=== PATIENT | male | born 2005 | race Hispanic/Latino ===

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

== ENCOUNTER 2025-02-21 01:05 | Emergency (ER) | payer SELFPAY ==
[~2025-02-21] VITALS: Ht 172.7 cm; Wt 113.4 kg
[2025-02-21 01:26] LABS: IMMATURE GRANULOCYTE ABSOLUTE 0.02 K/uL (0-1); NUCLEATED RED BLOOD CELLS 0.0 % (0.0-0.19); PLATELET COUNT (AUTO) 275 K/uL (130-400); RED BLOOD CELL COUNT(AUTO) 4.56 MIL/uL (4.50-6.20); RED CELL DISTRIBUTION WIDTH 12.8 % (11.0-15.5); WHITE BLOOD COUNT (AUTO) 9.0 K/uL (4.8-10.8)
[2025-02-21 01:34] LABS: CREATININE 0.9 mg/dL (0.5-1.3); GLOMERULAR FILTR. RATE CALC 125.0 mL/min (>90); GLUCOSE,RANDOM 112.0 mg/dL (70-105); SODIUM SERUM 139.0 mmol/L (136-145); UREA NITROGEN, BLOOD 12.0 mg/dL (7-18)
[2025-02-21 01:40] LABS: CREATINE KINASE, TOTAL 181.0 U/L (21-232)
--- NOTE | 2025-02-21 01:58 | ERN ---
General Chief Complaint: Chest Pain Stated Complaint: CHEST PAIN, SOB Time Seen by MD: 01:07 Time Seen by Midlevel: 01:07 Source: patient History of Present Illness Initial Comments Patient is a 19-year-old male with no significant past medical history presenting to the emergency department for evaluation of centralized chest pain that started a proximally1 hour prior to arrival. Denies similar episodes in the past. Denies any history of type 2 diabetes, hypertension, or any other chronic medical condition. On arrival with the patient does report feeling slightly improved but wanted further evaluation Allergies: Coded Allergies: No Known Allergies (Unverified Allergy, Unknown, 02/21/25) Past Medical History Past Medical History: No Pertinent History Past Surgical History: None ROS Dictation CONSTITUTIONAL: Negative except for HPI HEAD/FACE: Negative except for HPI EENT: Negative except for HPI RESPIRATORY: Negative except for HPI GASTROINTESTINAL/ABDOMINAL: Negative except for HPI GENITOURINARY: Negative except for HPI MUSCULOSKELETAL: Negative except for HPI INTEGUMENTARY: Negative except for HPI NEUROLOGICAL/PSYCH: Negative except for HPI HEMATOLOGIC/LYMPHATIC: Negative except for HPI All Systems Negative, Except as noted above. 13 point review of systems assessed and all negative except for above. Physical Exam Physical Exam Dictation Vital Signs reviewed General Appearance: Alert, oriented x 3, no acute distress, well developed, nourished. Head and Face: non-traumatic. Eyes: PERRL, pink conjunctivas, eyelid no trauma, anterior chamber with arcus senilis. Ears: Pinnas intact and no signs of trauma or erythema ear canals clear and no discharge TM no erythema Nose: No discharge, no bleeding. Oropharynx: Mouth normal, tongue pink, pharynx clear,no erythema, tonsils no exudates, no abscesses noted, mucous membrane moist Neck: Supple, non-tender, no thyromegaly, no masses, no JVD, no bruits Breast:Deferred Chest:No tenderness, no crepitus, no paradoxical movement, no retractions Lungs:Clear, well-ventilated, symmetric, no rales, no wheezing, no rhonchi, no stridor, good breath sounds bilaterally Heart: Regular rate, regular rhythm, no murmur, no gallops Vascular: no peripheral edema, Abdomen: Soft, positive bowel sounds, nondistended, no guarding, nontender, no rebound, no masses no hepatomegaly, no splenomegaly, no Kate's s ign, no hernias. Rectal: Deferred Genital: Deferred Neurological: Normal speech, motor function intact, sensory function intact Musculoskeletal: Neck nontender, full range of motion, back nontender, full range of motion, Extremities: nontender, full range of motion Skin: Color pink, dry, no turgor, no rash, no lacerations, no abrasions, no contusions. Lymphatic: Deferred Results Laboratory and Microbiology Lab and Micro Result Laboratory Tests Test 02/21/25 01:18 White Blood Count 9.0 K/uL (4.8-10.8) Red Blood Count 4.56 MIL/uL (4.50-6.20) Hemoglobin 14.4 g/dL (14.0-18.0) Hematocrit 40.6 % (42-54) L Mean Corpuscular Volume 89.0 fL (80-100) Mean Corpuscular Hemoglobin 31.6 pg (27.0-33.0) Mean Corpuscular Hemoglobin Concent 35.5 g/dL (32.0-36.0) Red Cell Distribution Width 12.8 % (11.0-15.5) Platelet Count 275 K/uL (130-400) Mean Platelet Volume 9.6 fL (7.5-10.5) Immature Granulocyte % (Auto) 0.2 % (0-1) Neutrophils (%) (Auto) 47.3 % (40.0-77.0) Lymphocytes (%) (Auto) 39.4 % (21.0-51.0) Monocytes (%) (Auto) 11.2 % (3.0-13.0) Eosinophils (%) (Auto) 1.3 % (0.0-8.0) Basophils (%) (Auto) 0.6 % (0.0-5.0) Neutrophils # (Auto) 4.3 K/uL (1.8-7.7) Lymphocytes # (Auto) 3.6 K/uL (1.0-4.8) Monocytes # (Auto) 1.0 K/uL (0.1-1.0) Eosinophils # (Auto) 0.12 K/uL (0.00-0.70) Basophils # (Auto) 0.05 K/uL (0.00-0.20) Absolute Immature Granulocyte (auto 0.02 K/uL (0-1) Nucleated Red Blood Cells 0.0 % (0.0-0.19) Sodium Level 139 mmol/L (136-145) Potassium Level 3.7 mmol/L (3.5-5.1) Chloride Level 102 mmol/L (101-111) Carbon Dioxide Level 32 mmol/L (21-32) Blood Urea Nitrogen 12 mg/dL (7-18) Creatinine 0.9 mg/dL (0.5-1.3) Glomerular Filtration Rate Calc 125 mL/min (>90) Random Glucose 112 mg/dL (70-105) H Total Calcium 9.2 mg/dL (8.5-10.1) Total Creatine Kinase 181 U/L (21-232) Troponin I High Sensitivity 5 ng/L (4-75) Labs Reviewed?: Yes MDM MDM: Differential diagnosis: Acute coronary syndrome, anxiety, pneumonia, acute bronchitis, pneumothorax There are no social concerns with this patient. Prescription drug management Prescriptions will include: None Medical management and examination interpretation discussions were had by me with other qualified healthcare professionals as indicated for the patient's care. ED Course Orders Procedure Category Date Status Time Vital Signs Per CPOE 02/21/25 Transmitted Routine 01:06 Chest 1vw RAD 02/21/25 Taken 01:06 12 Lead Ekg Tracing- EKG 02/21/25 Logged Technical 01:06 Oxygen By Nc/Pulse Ox CPOE 02/21/25 Transmitted 01:06 Maintain Iv CPOE 02/21/25 Transmitted 01:06 Iv Insertion CPOE 02/21/25 Transmitted 01:06 Cardiac Monitoring CPOE 02/21/25 Transmitted 01:06 Pulse Oximetry With CPOE 02/21/25 Transmitted Vs And Prn 01:06 Cbc With Differential LAB 02/21/25 Complete 01:06 Activity: Br W/Brp CPOE 02/21/25 Transmitted With Assist 01:06 Creatine Kinase, Total LAB 02/21/25 Complete 01:06 Troponin I High LAB 02/21/25 Complete Sensitivity 01:06 Urinalysis Profile LAB 02/21/25 Logged 01:06 Basic Metabolic Panel LAB 02/21/25 Complete 01:06 Vital Signs Date Time Temp Pulse Resp B/P (MAP) Pulse Ox O2 Delivery O2 Flow Rate FiO2 02/21/25 01:21 98.1 61 13 127/81 100 Room Air* 0 21 02/21/25 01:06 97.0 60 18 140/80 100 Room Air DX & DISP Disposition: Discharge Departure Impression: Primary Impression: Non-cardiac chest pain Condition: Stable Additional Instructions: Your blood work today is unremarkable. Your EKG is normal. Your chest x-ray is normal. Your cardiac enzymes are negative. Please follow up with your primary care doctor in 2-3 days for repeat evaluation. Return to the ER for any new or worsening symptoms Referrals: NONE (PCP) I have reviewed the case, and I agree with, Diagnosis and Plan I performed the substantive portion of the visit. I have reviewed and merlyn chacko made and approve the management plan that is documented in the note by myself or the KARIN. I acknowledge for responsibility for the patient's management plan. ONEIL MCCLOUD Feb 21, 2025 01:58
[2025-02-21 02:12] VITALS: BP 119/58; PULSE 71; RESP 19; TEMP 98.1; O2SAT 100
--- NOTE | 2025-02-21 04:05 | HMCIMG ---
EXAM: CR Chest, 1 view CLINICAL HISTORY: Chest pain. COMPARISON: None provided. FINDINGS: The lungs show no infiltrates or other acute findings. No pleural effusion or pneumothorax. The cardiomediastinal silhouette is within normal limits. No acute osseous abnormality. Mild left diaphragmatic eventration. IMPRESSION: No acute cardiopulmonary process is evident. /[place]
--- NOTE | 2025-02-21 05:52 | EKG ---
[facility] Test Date: 2025-02-21 Test Time: 01:13:48 Pat Name: OLIVIA AMBROSE Department: ED Room: Gender: M [employer]: [id number] : 2005 Requested By: MARGY THORPE Order Number: [id number] Reading MD: Ferdinand Pham Measurements Intervals [place] Rate: 62 P: 20 MT: 195 QRS: 65 QRSD: 98 T: 42 QT: 379 QTc: 384 Interpretive Statements Sinus rhythm No previous ECG available for comparison Electronically Signed On 02-21-2025 13:59:37 CDT by Ferdinand Pham Please click the below link to view image of tracing.
== END 2025-02-21 02:18 | disposition home or self-care (01) ==
LOC: EDH 01:05
DX: R07.89 Other chest pain (principal)
CPT/HCPCS: 36415; 71045; 80048; 82550; 84484; 85025; 93005; 99285